=== PATIENT | male | born 1990 | race Native Hawaiian/Other Pacific Islander ===

== ENCOUNTER 2020-09-24 11:55 | Emergency (ER) | payer OTHER | END 2020-09-24 13:21 | disposition home or self-care (01) | LOC: ED 11:55 | DX: J06.9 Acute upper respiratory infection, unspecified (principal); J01.80 Other acute sinusitis; I10 Essential (primary) hypertension; F17.210 Nicotine dependence, cigarettes, uncomplicated | CPT/HCPCS: 93005; 96372; 99283 ==

== ENCOUNTER 2020-11-04 15:47 | Emergency (ER) | payer OTHER ==
[~2020-11-04] VITALS: Ht 177.8 cm; Wt 122.5 kg
[2020-11-04 16:14] LABS: PLATELET COUNT 200 K/uL (142-355)
[2020-11-04 16:21] LABS: POTASSIUM 3.5 mmol/L (3.6-5.2)
[2020-11-04 16:32] VITALS: BP 145/98; TEMP 98.3
--- NOTE | 2020-11-07 08:25 | NUR ---
PATIENT NOTIFIED OF COVID RESULTS. PATIENT HAD NO QUESTIONS OR CONCERNS AT THIS TIME.
== END 2020-11-04 16:45 | disposition home or self-care (01) ==
LOC: ED 15:47
PROVIDERS: Hospitalist
DX: U07.1 COVID-19 (principal); J06.9 Acute upper respiratory infection, unspecified; F17.210 Nicotine dependence, cigarettes, uncomplicated
CPT/HCPCS: 80048; 85027; 87635; 87651; 99283; U0003